=== PATIENT | female | born 1980 | race African-American/Black ===

== ENCOUNTER 2024-08-21 12:10 | Emergency (ER) | payer MEDICAID ==
[~2024-08-21] VITALS: Ht 167.6 cm; Wt 118.0 kg
[2024-08-21 12:28] VITALS: O2SAT 100
[2024-08-21 12:39] VITALS: BP 181/119; PULSE 91; RESP 16; TEMP 98.3; O2SAT 99
[2024-08-21 15:13] LABS: EOSINOPHILS % 0.5 % (0.0-5.0); HEMATOCRIT. 41.7 % (36.0-48.0); HEMOGLOBIN. 13.5 g/dL (12.0-16.0); LYMPHOCYTES % 26.3 % (20.0-50.0); MEAN CORPUSCULAR HEMOGLOBIN 27.5 pg (28.0-32.0); MEAN CORPUSCULAR HGB CONC 32.4 g/dL (31.0-37.0); MEAN CORPUSCULAR VOLUME 84.9 fL (81.0-99.0); MEAN PLATELET VOLUME 9.3 fl (7.4-10.4); MONOCYTES % 4.4 % (2.0-8.0); NEUTROPHILS % 67.8 % (40.0-76.0); PLATELET 294 x1000/uL (130-400); RED BLOOD CELL COUNT 4.92 mill/uL (4.2-5.4); RED CELL DISTRIBUTION WIDTH 13.8 % (11.6-14.6); WHITE BLOOD COUNT 8.4 x1000/uL (4.5-11.0)
[2024-08-21 15:25] LABS: TROPONIN I HIGH SENSITIVITY 10 ng/L (3.0-34)
[2024-08-21] MEDS ORDERED: ACET-2708 MT (16:07)
[2024-08-21 16:09] LABS: CHLORIDE 103 mEq/L (98-107); POTASSIUM 4.4 mEq/L (3.5-5.1); SODIUM 135 mEq/L (136-145)
[2024-08-21 16:10] LABS: CARBON DIOXIDE 24 mEq/L (21-32)
[2024-08-21 16:11] LABS: CALCIUM 9.5 mg/dL (8.7-10.4)
[2024-08-21 16:16] LABS: CREATININE 0.9 mg/dL (0.6-1.0); GLUCOSE 324 mg/dL (70-105); UREA NITROGEN BLOOD 9 mg/dL (9-23)
== END 2024-08-21 14:42 | disposition home or self-care (01) ==
LOC: ER 12:10
DX: R10.9 Unspecified abdominal pain (principal); R07.89 Other chest pain; M25.569 Pain in unspecified knee; E11.9 Type 2 diabetes mellitus without complications; Z88.5 Allergy status to narcotic agent; Z98.890 Other specified postprocedural states
CPT/HCPCS: 36415; 71045; 73562; 80048; 83880; 84484; 85025; 93005; 99285

== ENCOUNTER 2024-10-14 00:50 | Emergency (ER) | payer MEDICAID ==
[~2024-10-14 00:50] MED LIST: ACET-2708 MT
[2024-10-14 01:43] VITALS: BP 191/101; PULSE 87; RESP 19; TEMP 37; O2SAT 100
[2024-10-14 02:52] LABS: BASOPHILS % 0.8 % (0.0-2.0); EOSINOPHILS % 3.1 % (0.0-5.0); HEMATOCRIT. 40.2 % (36.0-48.0); HEMOGLOBIN. 13.1 g/dL (12.0-16.0); LYMPHOCYTES % 38.8 % (20.0-50.0); MEAN CORPUSCULAR HEMOGLOBIN 27.1 pg (28.0-32.0); MEAN CORPUSCULAR HGB CONC 32.5 g/dL (31.0-37.0); MEAN CORPUSCULAR VOLUME 83.3 fL (81.0-99.0); MEAN PLATELET VOLUME 9.5 fl (7.4-10.4); MONOCYTES % 9.4 % (2.0-8.0); NEUTROPHILS % 47.9 % (40.0-76.0); PLATELET 290 x1000/uL (130-400); RED BLOOD CELL COUNT 4.82 mill/uL (4.2-5.4); RED CELL DISTRIBUTION WIDTH 13.8 % (11.6-14.6); WHITE BLOOD COUNT 5.7 x1000/uL (4.5-11.0)
[2024-10-14 02:58] LABS: CHLORIDE 99 mEq/L (98-107); POTASSIUM 4.2 mEq/L (3.5-5.1); SODIUM 136 mEq/L (136-145)
[2024-10-14 02:59] LABS: CALCIUM 9.2 mg/dL (8.7-10.4); CARBON DIOXIDE 31 mEq/L (21-32)
[2024-10-14 03:04] LABS: UREA NITROGEN BLOOD 10 mg/dL (9-23)
[2024-10-14 03:06] LABS: ALANINE AMINOTRANSFERASE 8 IU/L (10-49); ALBUMIN 3.9 g/dL (3.2-4.8); ASPARTATE AMINOTRANSFERASE 9 IU/L (<34); BILIRUBIN TOTAL 0.2 mg/dL (0.1-1.0); HCG SCREEN NEGATIVE; PROTEIN TOTAL 7.2 g/dL (6.0-8.3)
[2024-10-14 03:16] LABS: BILIRUBIN DIRECT < 0.1 mg/dL (<=3.0)
[2024-10-14 03:18] LABS: GLUCOSE 469 mg/dL (70-105)
[2024-10-14 03:56] LABS: CLARITY URINE CLEAR (CLEAR); COLOR URINE YELLOW (YELLOW); GLUCOSE URINE 3+ (NEGATIVE); KETONES URINE NEGATIVE (NEGATIVE); LEUKOCYTE ESTERASE URINE NEGATIVE (NEGATIVE); NITRITE URINE NEGATIVE (NEGATIVE); OCCULT BLOOD URINE TRACE (NEGATIVE); PH URINE 5.5 (4.5-8.0); PROTEIN URINE NEGATIVE (NEGATIVE); SPECIFIC GRAVITY URINE 1.042 (1.005-1.030); UROBILINOGEN URINE 0.2 E.U./dL (0.2-1.0)
[2024-10-14] MEDS: INSULIN REGULAR (HUMULIN R) 1000UNITS/10ML VIAL SUBCUT ONE (04:05)
[2024-10-14 04:31] LABS: BACTERIA URINE TRACE; RBC URINE NONE SEEN /hpf (0-2); SQUAMOUS EPITHELIAL CELL URINE FEW /lpf (RARE/1+); WBC URINE 0-2 /hpf (0-2)
== END 2024-10-14 07:31 | disposition home or self-care (01) ==
LOC: ER 00:50
DX: N83.202 Unspecified ovarian cyst, left side (principal); E66.9 Obesity, unspecified; Z68.35 Body mass index [BMI] 35.0-35.9, adult; E11.9 Type 2 diabetes mellitus without complications; R10.2 Pelvic and perineal pain; I10 Essential (primary) hypertension; Z88.5 Allergy status to narcotic agent; Z98.890 Other specified postprocedural states
CPT/HCPCS: 99285; 74176; 76830; 76856; 80076; 80048; 81003; 82962; 84703; 83690; 85025; 36415; 96372; J1815

== ENCOUNTER 2025-03-17 12:51 | Emergency (ER) | payer MEDICAID ==
[~2025-03-17] VITALS: Ht 167.6 cm; Wt 127.0 kg
[~2025-03-17 12:51] MED LIST changes: +ACET-3800 PO; +AMOX1TAB15 PO; +AMOX500T2 PO; +HYDR50TA39 PO; +INSU100I28 SQ; +NIFE-32 MT
[2025-03-17 12:57] VITALS: O2SAT 98
[2025-03-17 13:29] LABS: BASOPHILS % 1.0 % (0.0-2.0); EOSINOPHILS % 1.3 % (0.0-5.0); HEMATOCRIT. 36.5 % (36.0-48.0); HEMOGLOBIN. 12.1 g/dL (12.0-16.0); LYMPHOCYTES % 31.5 % (20.0-50.0); MEAN PLATELET VOLUME 9.3 fl (7.4-10.4); MONOCYTES % 5.1 % (2.0-8.0); NEUTROPHILS % 61.1 % (40.0-76.0); PLATELET 295 x1000/uL (130-400); RED BLOOD CELL COUNT 4.42 mill/uL (4.2-5.4); RED CELL DISTRIBUTION WIDTH 13.6 % (11.6-14.6)
[2025-03-17 14:19] LABS: HCG SCREEN NEGATIVE
[2025-03-17 14:37] LABS: CREATININE 0.9 mg/dL (0.6-1.0); UREA NITROGEN BLOOD 11 mg/dL (9-23)
[2025-03-17 15:14] LABS: TROPONIN I HIGH SENSITIVITY 8 ng/L (3.0-34)
[2025-03-17 17:51] VITALS: BP 153/74; PULSE 90; RESP 18; TEMP 36.7; O2SAT 98
[2025-03-17] MEDS ORDERED: IOHEXOL-350 100 ML BOTTLE ONE (23:33)
== END 2025-03-17 17:51 | disposition home or self-care (01) ==
LOC: ER 12:51
DX: R07.89 Other chest pain (principal); E11.65 Type 2 diabetes mellitus with hyperglycemia; Z88.5 Allergy status to narcotic agent; Z79.4 Long term (current) use of insulin; Z98.890 Other specified postprocedural states
CPT/HCPCS: 99285; 71275; 71045; 80048; 81025; 84703; 85025; 85379; 84484; 36415; 93005; Q9967